=== PATIENT | male | born 1960 | race Caucasian/White ===

== ENCOUNTER 2018-07-23 09:18 | Inpatient (IN) | payer MEDICARE, MEDICAID ==
[2018-07-10 13:58] LABS: BASOPHILS % (AUTO) 0.4 % (0-1); EOSINOPHILS # (AUTO) 0.6 X10'3 (0-0.9); EOSINOPHILS % (AUTO) 8.3 % (0-6); LYMPHOCYTES # (AUTO) 1.5 X10'3 (1.1-4.8); LYMPHOCYTES % (AUTO) 19.9 % (21-51); MEAN CORPUSCULAR HGB CONC 33.3 % (33.0-36.5); MEAN CORPUSCULAR VOLUME 96.2 FL (78-98); MEAN PLATELET VOLUME 6.4 FL (7.4-10.4); MONOCYTES # (AUTO) 0.9 X10'3 (0-0.9); MONOCYTES % (AUTO) 11.1 % (2-12); NEUTROPHILS # (AUTO) 4.7 X10'3 (1.8-7.7); NEUTROPHILS % (AUTO) 60.3 % (42-75); PRE OP HEMATOCRIT 44.4 % (42.0-52.0); PRE OP HEMOGLOBIN 14.8 g/dL (14.0-17.9); PRE OP PLATELET COUNT 383 X10'3 (140-440); RED BLOOD COUNT 4.62 X10'6 (4.70-6.10); RED CELL DISTRIBUTION WIDTH 15.3 % (11.5-14.5)
[2018-07-10 14:04] LABS: CLARITY,URINE CLEAR (Clear); COLOR,URINE YELLOW (Yellow); GLUCOSE, URINE NEGATIVE (Neg); KETONES,URINE NEGATIVE (Neg); LEUKOCYTE ESTERASE ,URINE NEGATIVE (Neg); NITRITES, URINE NEGATIVE (Neg); OCCULT BLOOD,URINE NEGATIVE (Neg); PH,URINE 6.5 (4.8-8.0); PROTEIN,URINE NEGATIVE (Neg)
[2018-07-10 14:08] LABS: UA COLLECTION TYPE NON-SPECIFIED
[2018-07-10 14:13] LABS: ALBUMIN/GLOBULIN RATIO 0.7 (1.1-1.5); ALKALINE PHOSPHATASE 148 IU/L (46-116); BLOOD UREA NITROGEN 8 MG/DL (7-18); BUN/CREATININE RATIO 8.6 (5.4-32.0); CALCIUM 8.7 MG/DL (8.5-10.1); CHLORIDE 98 MMOL/L (99-107); CREATININE 0.93 MG/DL (0.60-1.10); PRE OP ALT 19 U/L (30-65); PRE OP ANION GAP 5 (8-16); PRE OP AST 21 U/L (10-37); PRE OP BILIRUB, TOTAL 0.4 MG/DL (0.0-1.0); PRE OP GLUCOSE 102 MG/DL (70-104); PRE OP POTASSIUM 4.2 MMOL/L (3.4-5.1); PRE OP SODIUM 136 MMOL/L (135-145); TOTAL CARBON DIOXIDE 33.3 MMOL/L (24-32); TOTAL PROTEIN 7.5 G/DL (6.4-8.2); eGFR 83 ML/MIN
[2018-07-10 14:23] LABS: PRE OP PROTIME 10.3 SECONDS (9.0-12.0)
[2018-07-23] VITALS (19 sets, daily range): BP systolic 108–145; BP diastolic 76–92
[~2018-07-23] VITALS: Ht 182.9 cm; Wt 84.0 kg
[2018-07-23] MEDS: multivitamins, therapeutics tablet PO SCH (08:00)
[2018-07-23] MEDS: ascorbic acid 500mg tablet PO SCH ×2 (08:00→20:50)
[2018-07-23] MEDS: aspirin 325mg tablet PO SCH (08:30)
[~2018-07-23 09:18] MED LIST: DULO30CA51 PO; HYDROmorphone 1 mg/ml syringe IV PRN; IBUP-1984 PO; LIDOcaine 1% (10mg/ml) 2ml vial ONE; SILD20TA2 PO; acetaminophen 325mg tablet PO ONE; acetaminophen 325mg tablet PO PRN; albuterol 2.5 MG/3 ML nebule NEB ONE; bisacodyl 10mg suppository rectal RC PRN; ceFAZolin inj. 2,000 MG in dextrose 5%-water 50ml 50 ML IV ONE; celeCOXIB 100mg capsule PO ONE; diphenhydrAMINE 25mg capsule PO PRN; famotidine 20mg tablet PO ONE; gabapentin 300mg capsule PO ONE; magnesium hydroxide 30ml (MOM) UD suspension PO PRN; metoclopramide 5 mg/ml inj IV ONE; normal saline 1000ml 1,000 ML IV SCH; ondansetron/PF 4mg/2ml inj IV PRN; oxyCODONE SR 10mg (sust. release) tab -2 tabs (20mg) PO ONE; oxyCODONE/APAP 5-325mg tablet PO PRN; ringers solution, lacted 1,000 ML IV SCH; tranexamic acid inj. 1,000 MG in normal saline 100ml IV soln 90 ML IV ONE; vancomycin inj 1,500 MG in normal saline 300ml IV soln IV ONE
[2018-07-23] MEDS ORDERED: vancomycin 1,000mg inj ONE (09:48)
[2018-07-23] MEDS ORDERED: ketorolac trometh. 30mg/ml inj. ONE (09:48)
[2018-07-23] MEDS ORDERED: ROPIVAcaine 0.5% (5mg/ml) 30ml vial ONE (09:51)
[2018-07-23] MEDS ORDERED: ROPIVAcaine inj 250 MG, epiNEPHrine inj 0.5 MG, CloNIDine/PF inj 80 MCG in normal salin... SQ ONE (10:05)
[2018-07-23] MEDS ORDERED: ondansetron/PF 4mg/2ml inj ONE (10:55)
[2018-07-23] MEDS ORDERED: LIDOcaine 1%/PF 5ML 10 MG/ML VIAL ONE (10:55)
[2018-07-23] MEDS ORDERED: sevoflurane 250ml liquid IH ONE (10:55)
[2018-07-23] MEDS ORDERED: propofol 10mg/ml 20ml vial IV ONE (10:55)
[2018-07-23] MEDS ORDERED: fentaNYL/PF 50MCG/1 ML 2ML syringe ONE ×2 (11:18→11:54)
[2018-07-23] MEDS ORDERED: dexamethasone sod phosphate 4mg/ml inj. ONE (11:18)
[2018-07-23] MEDS ORDERED: ringers solution, lacted 1,000 ML IV SCH (11:38)
[2018-07-23] MEDS ORDERED: labetalol 20mg/4ml (5mg/ml) syringe IV PRN (11:40)
[2018-07-23] MEDS ORDERED: morphine 4 MG/ML inj SYRINge IV PRN ×2 (11:40)
[2018-07-23] MEDS ORDERED: fentaNYL/PF 50MCG/1 ML 2ML syringe IV PRN ×2 (11:40)
[2018-07-23] MEDS ORDERED: hydrALAZINE 20mg/ml inj. IV PRN (11:40)
[2018-07-23] MEDS ORDERED: ondansetron/PF 4mg/2ml inj IV PRN (11:40)
[2018-07-23] MEDS: gabapentin 300mg capsule PO SCH ×2 (13:00→20:50)
[2018-07-23] MEDS ORDERED: cefazolin/dext.iso 2gm/100ml 100 ML IV SCH (16:00)
[2018-07-23] MEDS: potassium cl 20mEq in 1/2 NS 1,000 ML IV SCH ×3 (16:45→23:38)
[2018-07-23] MEDS: cefazolin/dext.iso 2gm/50ml 50 ML IV SCH ×2 (16:51→23:33)
[2018-07-23] MEDS ORDERED: tranexamic acid inj. 1,000 MG in normal saline 100ml IV soln 100 ML IV ONE (20:00)
[2018-07-23] MEDS: sennosides 8.6mg tablet PO SCH (20:51)
[2018-07-23] MEDS: oxyCODONE/APAP 10/325mg tablet PO PRN (23:32)
[2018-07-24 02:00] VITALS: BP 130/83
[2018-07-24] MEDS: potassium cl 20mEq in 1/2 NS 1,000 ML IV SCH ×2 (03:33→13:29)
[2018-07-24] MEDS: oxyCODONE/APAP 10/325mg tablet PO PRN ×2 (05:16→10:19)
[2018-07-24 06:00] VITALS: BP 146/91
[2018-07-24] MEDS: gabapentin 300mg capsule PO SCH ×3 (08:18→20:17)
[2018-07-24] MEDS: cefazolin/dext.iso 2gm/50ml 50 ML IV SCH (08:18)
[2018-07-24] MEDS: multivitamins, therapeutics tablet PO SCH (08:18)
[2018-07-24] MEDS: ascorbic acid 500mg tablet PO SCH ×2 (08:18→20:17)
[2018-07-24] MEDS: aspirin 325mg tablet PO SCH (08:18)
[2018-07-24] MEDS: duloxetine 30mg CAPSULE.DR PO SCH (08:18)
[2018-07-24 10:00] VITALS: BP 153/100
[2018-07-24] MEDS ORDERED: oxyCODONE/APAP 10/325mg tablet PO PRN (10:25)
[2018-07-24] MEDS ORDERED: oxyCODONE IR 5mg (immed. release) tablet PO PRN (10:35)
[2018-07-24 11:19] LABS: BASOPHILS # (AUTO) 0.1 X10'3 (0-0.2); BASOPHILS % (AUTO) 0.8 % (0-1); EOSINOPHILS % (AUTO) 0.2 % (0-6); HEMATOCRIT 41.7 % (42.0-52.0); HEMOGLOBIN 13.8 g/dl (14.0-17.9); LYMPHOCYTES # (AUTO) 1.1 X10'3 (1.1-4.8); LYMPHOCYTES % (AUTO) 8.2 % (21-51); MEAN CORPUSCULAR HEMOGLOBIN 31.6 PG (27.0-31.0); MEAN CORPUSCULAR HGB CONC 33.1 % (33.0-36.5); MEAN CORPUSCULAR VOLUME 95.6 FL (78-98); MEAN PLATELET VOLUME 6.8 FL (7.4-10.4); MONOCYTES # (AUTO) 1.2 X10'3 (0-0.9); MONOCYTES % (AUTO) 8.6 % (2-12); NEUTROPHILS # (AUTO) 11.4 X10'3 (1.8-7.7); NEUTROPHILS % (AUTO) 82.2 % (42-75); PLATELET COUNT 397 X10'3 (140-440); RED BLOOD COUNT 4.37 X10'6 (4.70-6.10); RED CELL DISTRIBUTION WIDTH 15.2 % (11.5-14.5); WHITE BLOOD COUNT 13.8 X10'3 (4.5-11.0)
[2018-07-24] MEDS: oxyCODONE IR 5mg (immed. release) tablet PO PRN ×3 (11:23→21:08)
[2018-07-24] MEDS: celeCOXIB 100mg capsule PO SCH ×2 (11:24→20:17)
[2018-07-24 11:36] LABS: ANION GAP 11 (8-16); CHLORIDE 102 MMOL/L (99-107); POTASSIUM 3.9 MMOL/L (3.5-5.1); SODIUM 136 MMOL/L (135-145); TOTAL CARBON DIOXIDE 23.1 MMOL/L (24-32)
[2018-07-24] MEDS: HYDROmorphone 1 mg/ml syringe IV PRN ×2 (13:22→19:04)
[2018-07-24] MEDS: acetaminophen 325mg tablet PO SCH ×2 (13:23→20:17)
[2018-07-24 14:00] VITALS: BP 164/93
[2018-07-24 18:00] VITALS: BP 162/91
[2018-07-24] MEDS ORDERED: celeCOXIB 100mg capsule PO SCH (20:00)
[2018-07-24] MEDS: sennosides 8.6mg tablet PO SCH (20:17)
[2018-07-24 22:00] VITALS: BP 147/86
[2018-07-25] MEDS: oxyCODONE IR 5mg (immed. release) tablet PO PRN ×3 (01:21→09:48)
[2018-07-25] MEDS: acetaminophen 325mg tablet PO SCH ×2 (01:21→09:47)
[2018-07-25 06:00] VITALS: BP 146/89
[2018-07-25 06:13] LABS: BASOPHILS % (AUTO) 0.3 % (0-1); EOSINOPHILS # (AUTO) 0.2 X10'3 (0-0.9); EOSINOPHILS % (AUTO) 2.1 % (0-6); HEMATOCRIT 41.5 % (42.0-52.0); HEMOGLOBIN 13.5 g/dl (14.0-17.9); LYMPHOCYTES # (AUTO) 1.9 X10'3 (1.1-4.8); LYMPHOCYTES % (AUTO) 17.3 % (21-51); MEAN CORPUSCULAR HGB CONC 32.5 % (33.0-36.5); MEAN CORPUSCULAR VOLUME 95.5 FL (78-98); MEAN PLATELET VOLUME 6.8 FL (7.4-10.4); MONOCYTES # (AUTO) 0.9 X10'3 (0-0.9); MONOCYTES % (AUTO) 8.4 % (2-12); NEUTROPHILS % (AUTO) 71.9 % (42-75); PLATELET COUNT 417 X10'3 (140-440); RED BLOOD COUNT 4.35 X10'6 (4.70-6.10); RED CELL DISTRIBUTION WIDTH 15.3 % (11.5-14.5); WHITE BLOOD COUNT 11.1 X10'3 (4.5-11.0)
[2018-07-25] MEDS: celeCOXIB 100mg capsule PO SCH (09:39)
[2018-07-25] MEDS: ascorbic acid 500mg tablet PO SCH (09:40)
[2018-07-25] MEDS: aspirin 325mg tablet PO SCH (09:40)
[2018-07-25] MEDS: multivitamins, therapeutics tablet PO SCH (09:40)
[2018-07-25] MEDS: duloxetine 30mg CAPSULE.DR PO SCH (09:40)
[2018-07-25] MEDS: gabapentin 300mg capsule PO SCH (09:40)
== END 2018-07-25 13:42 | disposition home or self-care (01) | DRG 470 ==
LOC: PAS IN 09:18 → EDSTATUS 11:00 → ORTHO 4S 16:50
PROVIDERS: ADMIT Orthopaedic Surgery; ATTEND Orthopaedic Surgery
PROC: 3E0T3BZ Introduction of Anesthetic Agent into Peripheral Nerves and Plexi, Percutaneous Approach (ICD-10-PCS; 2018-07-23)
PROC: 8E0Y0CZ Robotic Assisted Procedure of Lower Extremity, Open Approach (ICD-10-PCS; 2018-07-23)
PROC: 0SRD0J9 Replacement of Left Knee Joint with Synthetic Substitute, Cemented, Open Approach (ICD-10-PCS; principal; 2018-07-23 11:00)
DX: M17.12 Unilateral primary osteoarthritis, left knee (principal); D62 Acute posthemorrhagic anemia; F41.8 Other specified anxiety disorders; Z79.899 Other long term (current) drug therapy; Z87.891 Personal history of nicotine dependence
CPT/HCPCS: 36415; 71046; 73560; 80051; 80053; 81003; 85025; 85610; 85730; 86885; 86900; 86901; 87070; 93005; 97110; 97116; 97161; 97530; A6455; A7000; C1713; C1758; C1776; G0378; J0171; J0690; J0735; J1100; J1170; J1885; J2001; J2405; J2704; J2765; J2795; J3010; J3370; J3490; J7030; J7060; J7120

== ENCOUNTER 2018-09-15 22:50 | Inpatient (IN) | payer MEDICARE, MEDICAID ==
[~2018-09-15] VITALS: Ht 182.9 cm; Wt 79.5 kg
[~2018-09-15 22:50] MED LIST changes: -HYDROmorphone 1 mg/ml syringe IV PRN; -LIDOcaine 1% (10mg/ml) 2ml vial ONE; -SILD20TA2 PO; -acetaminophen 325mg tablet PO ONE; -acetaminophen 325mg tablet PO PRN; -albuterol 2.5 MG/3 ML nebule NEB ONE; -bisacodyl 10mg suppository rectal RC PRN; -ceFAZolin inj. 2,000 MG in dextrose 5%-water 50ml 50 ML IV ONE; -celeCOXIB 100mg capsule PO ONE; -diphenhydrAMINE 25mg capsule PO PRN; -famotidine 20mg tablet PO ONE; -gabapentin 300mg capsule PO ONE; -magnesium hydroxide 30ml (MOM) UD suspension PO PRN; -metoclopramide 5 mg/ml inj IV ONE; -normal saline 1000ml 1,000 ML IV SCH; -ondansetron/PF 4mg/2ml inj IV PRN; -oxyCODONE SR 10mg (sust. release) tab -2 tabs (20mg) PO ONE; -oxyCODONE/APAP 5-325mg tablet PO PRN; -ringers solution, lacted 1,000 ML IV SCH; -tranexamic acid inj. 1,000 MG in normal saline 100ml IV soln 90 ML IV ONE; -vancomycin inj 1,500 MG in normal saline 300ml IV soln IV ONE
[2018-09-15] MEDS ORDERED: normal saline 1000ML IV soln IV ONE (23:30)
[2018-09-15] MEDS ORDERED: levoFLOXACIN-Levaquin 750MG/D5 150 ML IV STA (23:46)
[2018-09-16 00:03] LABS: BASOPHILS # (AUTO) 0.1 X10'3 (0-0.2); EOSINOPHILS # (AUTO) 0.5 X10'3 (0-0.9); EOSINOPHILS % (AUTO) 6.2 % (0-6); HEMATOCRIT 40.8 % (42.0-52.0); HEMOGLOBIN 13.5 g/dl (14.0-17.9); LYMPHOCYTES # (AUTO) 1.6 X10'3 (1.1-4.8); LYMPHOCYTES % (AUTO) 19.1 % (21-51); MEAN CORPUSCULAR HEMOGLOBIN 29.4 PG (27.0-31.0); MEAN CORPUSCULAR HGB CONC 33.2 g/dL (33.0-36.5); MEAN CORPUSCULAR VOLUME 88.6 FL (78-98); MEAN PLATELET VOLUME 6.5 FL (7.4-10.4); MONOCYTES # (AUTO) 1.2 X10'3 (0-0.9); MONOCYTES % (AUTO) 14.1 % (2-12); NEUTROPHILS # (AUTO) 5.1 X10'3 (1.8-7.7); NEUTROPHILS % (AUTO) 59.6 % (42-75); PLATELET COUNT 544 X10'3 (140-440); RED CELL DISTRIBUTION WIDTH 16.4 % (11.5-14.5); WHITE BLOOD COUNT 8.6 X10'3 (4.5-11.0)
[2018-09-16 00:19] LABS: ALBUMIN 3.2 G/DL (3.4-5.0); ANION GAP 8 (8-16); BILIRUBIN,TOTAL 0.4 MG/DL (0.1-1.0); BLOOD UREA NITROGEN 23 MG/DL (7-18); CALCIUM 9.7 MG/DL (8.5-10.1); CHLORIDE 99 MMOL/L (99-107); CREATINE KINASE 93 U/L (39-308); CREATININE 0.92 MG/DL (0.60-1.10); GLUCOSE 115 MG/DL (70-104); MAGNESIUM 1.8 MG/DL (1.5-2.4); POTASSIUM 3.9 MMOL/L (3.5-5.1); SODIUM 138 MMOL/L (135-145); TOTAL PROTEIN 7.9 G/DL (6.4-8.2); eGFR 84 ML/MIN
[2018-09-16 00:20] LABS: ALANINE AMINOTRANSFERASE 56 U/L (12-78); ALBUMIN/GLOBULIN RATIO 0.7 (1.1-1.5); ALKALINE PHOSPHATASE 156 IU/L (46-116); ASPARTATE AMINO TRANSFERASE 30 U/L (10-37)
[2018-09-16 00:24] LABS: INR 1.1 INR; PARTIAL THROMBOPLASTIN TIME 30 SECONDS (22-32); PROTHROMBIN TIME 10.8 SECONDS (9.0-12.0)
[2018-09-16] MEDS ORDERED: acetaminophen 325mg tablet PO PRN (00:55)
[2018-09-16] MEDS ORDERED: HYDROcodone/acetaminophen 10/325mg tab PO PRN (00:55)
[2018-09-16] MEDS ORDERED: HYDROcodone/acetaminophen 5mg/325mg tablet PO PRN (00:55)
[2018-09-16] MEDS ORDERED: magnesium hydroxide 30ml (MOM) UD suspension PO PRN (00:55)
[2018-09-16] MEDS ORDERED: ondansetron/PF 4mg/2ml inj IV PRN (00:55)
[2018-09-16] MEDS ORDERED: morphine 2 MG/ML inj. syringe IV PRN ×2 (00:55)
[2018-09-16] MEDS ORDERED: mag hydrox/Alum hydrox/simeth 30ml oral suspension PO PRN (00:55)
--- NOTE | 2018-09-16 01:06 | NUR ---
patient asking for note from doctor for his last hospitalization in august 2018 which he left against medical advice. i explained to the patient that the er md will only write a note for time in the er and not previous hospitalizations. i told the patient that he can obtain his records of his previous hospitalization from medical records during regular business hours. patient wants records for his dui class. patient just removed all his monitoring despite instructions to leave his bp cuff and pulse ox on.
[2018-09-16] MEDS: vancomycin/NS 1 GM ADD-VANTAGE 250 ML IV SCH ×2 (01:29→10:38)
--- NOTE | 2018-09-16 01:30 | NUR ---
Pt on month 15 of an 18 mo program for a DUI charge. He takes the class 1 x week and he can only miss 10 classes. He is the most concerned about missing class.
[2018-09-16] MEDS ORDERED: ibuprofen tablet 400 MG TABLET PO PRN (01:35)
--- NOTE | 2018-09-16 01:47 | NUR ---
Received report from FUNMI Forrest. Awaiting arrival to the unit.
--- NOTE | 2018-09-16 02:05 | NUR ---
Patient arrived to the floor via gurney. Placed in 357A. Awake and alert on room air, in no apparent distress. Call light and items of frequent use within reach. Will continue to monitor.
[2018-09-16 02:10] VITALS: BP 175/104
[2018-09-16 02:24] LABS: CLARITY,URINE CLEAR (Clear); COLOR,URINE YELLOW (Yellow); GLUCOSE, URINE NEGATIVE (Neg); KETONES,URINE TRACE mg/dl (Neg); LEUKOCYTE ESTERASE ,URINE NEGATIVE (Neg); NITRITES, URINE NEGATIVE (Neg); OCCULT BLOOD,URINE TRACE-LYSED (Neg); PH,URINE 5.5 (4.8-8.0); PROTEIN,URINE TRACE mg/dl (Neg); UROBILINOGEN,URINE 0.2 E.U/dL (0.2-1.0)
[2018-09-16 02:35] LABS: UA COLLECTION TYPE CLN CATCH MIDSTREAM
[2018-09-16 02:36] LABS: AMORPHOUS URATES 1+; BACTERIA,URINE FEW /HPF (Neg); MUCUS STRANDS FEW /LPF (Neg); RBC,URINE NONE SEEN /HPF (0-2); SQUAMOUS EPITHELIAL CELL,UR FEW /LPF (FEW); WBC,URINE NONE SEEN /HPF (0-4)
[2018-09-16 02:37] LABS: URINE AMPHETAMINE SCREEN POSITIVE (Neg); URINE BARBITUATE SCREEN NEGATIVE (Neg); URINE BENZODIAZEPINES SCREEN NEGATIVE (Neg); URINE CANNABINOID SCREEN POSITIVE (Neg); URINE COCAINE SCREEN NEGATIVE (Neg); URINE METHADONE SCREEN NEGATIVE (Neg); URINE OPIATE SCREEN POSITIVE (Neg); URINE PHENCYCLIDINE SCREEN NEGATIVE (Neg)
[2018-09-16 03:22] VITALS: BP 151/99
[2018-09-16] MEDS: lisinopril 10 MG tablet PO SCH ×2 (03:22→08:05)
--- NOTE | 2018-09-16 06:19 | NUR ---
Problems reprioritized. Patient report given, questions answered & plan of care reviewed with FUNMI Denny. Patient resting with eyes closed.
--- NOTE | 2018-09-16 06:56 | NUR ---
Patient in room [facility]. I have received report from TEODORO CHOUDHARY and had the opportunity to ask questions and assume patient care.
[2018-09-16 08:00] VITALS: BP 160/96
[2018-09-16] MEDS ORDERED: nicotine 21mg patch - 24 hr TD SCH (08:00)
[2018-09-16] MEDS ORDERED: enoxaparin 40mg/0.4ml syringe SUBCUT SCH (08:00)
[2018-09-16 08:05] VITALS: BP_SYST 160
--- NOTE | 2018-09-16 12:00 | NUR ---
pt signed out AMA. Risks and consequences involved in leaving the hospital against Md advise discussed.
[2018-09-16] MEDS ORDERED: duloxetine 30mg CAPSULE.DR PO SCH (21:00)
[2018-09-17] MEDS ORDERED: VANCOMYCIN LEVEL IV ONE (01:30)
== END 2018-09-16 12:15 | disposition left against medical advice (07) | DRG 552 ==
LOC: ER 22:51 → ED HOLD 09-16 00:55 → CMPBEDREQ 09-16 02:01 → SUR 3N 09-16 02:05
PROVIDERS: ADMIT Student in an Organized Health Care Education/Training Program; ATTEND Internal Medicine
DX: M54.9 Dorsalgia, unspecified (principal); F15.90 Other stimulant use, unspecified, uncomplicated; F17.200 Nicotine dependence, unspecified, uncomplicated; F32.9 Major depressive disorder, single episode, unspecified; Z53.21 Procedure and treatment not carried out due to patient leaving prior to being seen by health care provider; Z86.73 Personal history of transient ischemic attack (TIA), and cerebral infarction without residual deficits; Z79.899 Other long term (current) drug therapy
CPT/HCPCS: 36415; 71045; 80053; 80305; 81001; 82550; 83605; 83735; 84145; 85025; 85610; 85651; 85730; 87040; 87070; 93005; 96365; 96372; 99285; G0378; J1650; J1956; J3370

== ENCOUNTER 2018-10-20 16:53 | Emergency (ER) | payer MEDICARE, MEDICAID ==
[~2018-10-20] VITALS: Ht 177.8 cm; Wt 81.8 kg
[~2018-10-20 16:53] MED LIST changes: +DULO-31 PO; +GABA300C PO; +OXYC-511 PO
[2018-10-20] MEDS ORDERED: ONDA4TAB6 PO (17:23)
[2018-10-20] MEDS ORDERED: NICO-731 TOP (17:23)
[2018-10-20] MEDS ORDERED: DIPH25CA83 PO (17:23)
[2018-10-20 17:36] VITALS: BP 166/98
== END 2018-10-20 17:39 | disposition home or self-care (01) ==
LOC: ER 16:53
DX: F11.10 Opioid abuse, uncomplicated (principal); Z02.89 Encounter for other administrative examinations; Z79.899 Other long term (current) drug therapy
CPT/HCPCS: 99283

== ENCOUNTER 2023-07-13 00:17 | Emergency (ER) | payer MEDICARE, MEDICAID ==
[~2023-07-13] VITALS: Ht 182.9 cm; Wt 77.5 kg
[~2023-07-13 00:17] MED LIST changes: +DIPH25CA83 PO; -DULO30CA51 PO; +DULO30CA52 PO; +NICO-731 TOP; +ONDA4TAB6 PO; -OXYC-511 PO; +OXYC1TAB17 PO
[2023-07-13 00:28] VITALS: BP 138/90; PULSE 72; RESP 13; TEMP 98.3; O2SAT 95
[2023-07-13] MEDS ORDERED: DOXYCYCLINE 100MG CAPSULE PO STA (01:49)
[2023-07-13] MEDS ORDERED: DOXY-411 PO (01:50)
[2023-07-13] MEDS ORDERED: acetaminophen w/codeine (30MG) #3 tablet PO ONE (01:55)
[2023-07-13] MEDS ORDERED: ibuprofen tablet 400 MG TABLET PO ONE (01:55)
== END 2023-07-13 02:14 | disposition home or self-care (01) ==
LOC: ER 00:18
DX: L03.031 Cellulitis of right toe (principal)
CPT/HCPCS: 73660; 99284

== ENCOUNTER 2024-03-23 10:38 | Emergency (ER) | payer MEDICAID ==
[~2024-03-23] VITALS: Ht 170.2 cm; Wt 68.2 kg
[2024-03-23 11:36] LABS: BASOPHILS % (AUTO) 0.5 % (0-1); EOSINOPHILS # (AUTO) 0.4 X10'3 (0-0.9); HEMATOCRIT 44.8 % (42.0-52.0); HEMOGLOBIN 15.1 g/dl (14.0-17.9); LYMPHOCYTES # (AUTO) 1.6 X10'3 (1.1-4.8); LYMPHOCYTES % (AUTO) 18.5 % (21-51); MEAN CORPUSCULAR HEMOGLOBIN 33.6 PG (27.0-31.0); MEAN CORPUSCULAR HGB CONC 33.7 g/dL (33.0-36.5); MEAN CORPUSCULAR VOLUME 99.9 FL (78-98); MEAN PLATELET VOLUME 7.4 FL (7.4-10.4); MONOCYTES # (AUTO) 0.7 X10'3 (0-0.9); MONOCYTES % (AUTO) 8.1 % (2-12); NEUTROPHILS # (AUTO) 6.1 X10'3 (1.8-7.7); NEUTROPHILS % (AUTO) 68.9 % (42-75); PLATELET COUNT 338 X10'3 (140-440); RED BLOOD COUNT 4.48 X10'6 (4.70-6.10); RED CELL DISTRIBUTION WIDTH 13.7 % (11.5-14.5); WHITE BLOOD COUNT 8.9 X10'3 (4.5-11.0)
[2024-03-23 11:55] LABS: ALBUMIN 3.4 G/DL (3.4-5.0); ANION GAP 6 (8-16); BLOOD UREA NITROGEN 18 MG/DL (7-18); BUN/CREATININE RATIO 18.2 (10.0-20.0); CALCIUM 9.2 MG/DL (8.5-10.1); CHLORIDE 103 MMOL/L (99-107); CREATININE 0.99 MG/DL (0.60-1.10); GLUCOSE 116 MG/DL (70-104); POTASSIUM 3.9 MMOL/L (3.5-5.1); PRO BRAIN NATRIURETIC PEPTIDE 153 PG/ML (0-125); SODIUM 137 MMOL/L (135-145); eCRCL 70 ML/MIN; eGFR 76 ML/MIN
[2024-03-23] MEDS: ipratropium/albuterol 3ml nebule NEB ONE (14:04)
[2024-03-23 14:06] VITALS: PULSE 70; RESP 16; O2SAT 93
[2024-03-23 14:12] VITALS: PULSE 80; RESP 18; O2SAT 95
[2024-03-23] MEDS: predniSONE 20 mg tablet PO ONE (14:15)
[2024-03-23] MEDS ORDERED: PRED20TA PO (14:19)
[2024-03-23] MEDS ORDERED: DOXY-224 PO (14:19)
[2024-03-23] MEDS ORDERED: ALBU8HFA INH (14:19)
[2024-03-23 14:55] VITALS: BP 148/72; PULSE 75; RESP 18; TEMP 98.7; O2SAT 95
== END 2024-03-23 15:31 | disposition home or self-care (01) ==
LOC: ER 10:39
DX: J44.1 Chronic obstructive pulmonary disease with (acute) exacerbation (principal); J43.9 Emphysema, unspecified; J18.9 Pneumonia, unspecified organism; Z79.899 Other long term (current) drug therapy; Z79.2 Long term (current) use of antibiotics; Z79.1 Long term (current) use of non-steroidal anti-inflammatories (NSAID)
CPT/HCPCS: 36415; 71045; 71250; 80048; 83880; 84484; 85025; 93005; 94640; 99285; J7512; 94760